=== PATIENT | female | born 1960 | race African-American/Black ===

== ENCOUNTER 2016-12-26 12:39 | Emergency (ER) | payer OTHER ==
--- NOTE | 2016-12-26 14:07 | RAD ---
RIGHT ANKLE THREE VIEWS: HISTORY: Injury, right ankle pain. FINDINGS/IMPRESSION: The ankle mortise is maintained. No fracture, dislocation, or bony destruction is seen. Soft tissu e swelling is present. POS: [facility]
[2016-12-26] MEDS ORDERED: HYDROcodone/Acetaminophen 10/325 mg Tablet ONE (14:11)
[2016-12-26] MEDS ORDERED: Naproxen 500 MG TAB ONE (14:11)
== END 2016-12-26 14:55 | disposition home or self-care (01) ==
LOC: MADERS 12:39
DX: S93.401A Sprain of unspecified ligament of right ankle, initial encounter (principal); E11.9 Type 2 diabetes mellitus without complications; E78.5 Hyperlipidemia, unspecified; E78.00 Pure hypercholesterolemia, unspecified; I10 Essential (primary) hypertension; Z87.891 Personal history of nicotine dependence; X58.XXXA Exposure to other specified factors, initial encounter

== ENCOUNTER 2017-02-22 05:18 | Emergency (ER) | payer OTHER ==
[2017-02-22] MEDS ORDERED: Benzonatate 100 MG CAP ONE (05:55)
== END 2017-02-22 06:37 | disposition home or self-care (01) ==
LOC: MADERS 05:18
DX: J06.9 Acute upper respiratory infection, unspecified (principal); E11.9 Type 2 diabetes mellitus without complications; E78.5 Hyperlipidemia, unspecified; I10 Essential (primary) hypertension; Z87.891 Personal history of nicotine dependence; Z79.82 Long term (current) use of aspirin; Z79.84 Long term (current) use of oral hypoglycemic drugs; Z79.899 Other long term (current) drug therapy
CPT/HCPCS: 36416; 99283

== ENCOUNTER 2017-11-03 08:21 | Emergency (ER) | payer OTHER | END 2017-11-03 09:20 | disposition home or self-care (01) | LOC: MADERS 08:21 | DX: J01.90 Acute sinusitis, unspecified (principal); E11.9 Type 2 diabetes mellitus without complications; E78.5 Hyperlipidemia, unspecified; I10 Essential (primary) hypertension; Z87.891 Personal history of nicotine dependence; Z79.82 Long term (current) use of aspirin; Z79.899 Other long term (current) drug therapy; Z79.84 Long term (current) use of oral hypoglycemic drugs | CPT/HCPCS: 87804; 99283 ==

== ENCOUNTER 2017-12-05 05:48 | Emergency (ER) | payer OTHER ==
[2017-12-05 06:12] LABS: Bilirubin Negative (Negative); Blood, Urine Negative (Negative); Clarity Clear (Clear); Glucose, Urine (Dipstick) Negative (Negative); Leukocyte Trace (Negative); Nitrite Negative (Negative); Protein, Urine (Dipstick) 30 mg/dL (Neg-Trace); Specific Gravity, Urine 1.029 (1.002-1.036); Urobilinogen 0.2 mg/dL (0.2-1.0); pH, Urine 5.5 (5.0-9.0)
[2017-12-05 06:21] LABS: RBC/HPF 0-3 HPF (0-3)
[2017-12-05 06:22] LABS: Bacteria/HPF 1+ HPF (None Seen)
[2017-12-05 06:36] LABS: #Basophils 0.1 thou/uL (0.0-0.2); #Eosinphils 0.1 thou/uL (0.0-0.7); #Lymphocytes 3.6 thou/uL (1.20-3.40); #Monocytes 0.4 thou/uL (0.11-0.59); #Neutrophils 3.4 thou/uL (1.40-6.50); %Basophils 1.8 % (0.0-1.0); %Eosinophils 1.2 % (0.0-10.0); %Lymphocytes 47.1 % (21.0-51.0); %Monocytes 5.2 % (0.0-10.0); %Neutrophils 44.7 % (42.0-75.0); Hemoglobin 13.4 g/dL (12.0-16.0); Mean Corpuscular Hemoglobin 29.1 pg (27.0-31.0); Mean Platelet Volume 6.9 fL (7.4-10.4); Platelet Count 375 thou/uL (130-400); RBC Distribution Width 13.1 % (11.5-14.5); Red Blood Cell (RBC) Count 4.59 mill/uL (4.20-5.40); White Blood Cell (WBC) Count 7.6 thou/uL (4.8-10.8)
[2017-12-05 06:45] LABS: ALT (SGPT) 19 U/L (8-55); AST (SGOT) 18 U/L (5-34); Albumin 4.1 g/dL (3.5-5.0); Alkaline Phosphatase 78 U/L (40-150); Anion Gap 14 mmol/L (10-20); BUN (Urea Nitrogen) 18 mg/dL (9.8-20.1); Bilirubin, Total 0.2 mg/dL (0.2-1.2); Calc. Creatinine Clearance 0 mL/min (70-130); Calcium 9.8 mg/dL (7.8-10.44); Carbon Dioxide 32 mmol/L (22-29); Chloride 102 mmol/L (98-107); Estimated GFR-MDRD Greater than 90; Globulin 3.2 g/dL (2.4-3.5); Glucose 108 mg/dL (70-105); Potassium 3.7 mmol/L (3.5-5.1); Protein, Total 7.3 g/dL (6.0-8.3); Sodium 144 mmol/L (136-145)
[2017-12-05] MEDS ORDERED: Ondansetron ODT 4 MG TAB ONE (06:46)
[2017-12-05] MEDS ORDERED: Mag-Al Plus 1200 MG/1200 MG/120 MG/30 ML UDCUP ONE (06:47)
[2017-12-05] MEDS ORDERED: Lidocaine Viscous Sol 2% 15 ml UD Cup ONE (06:47)
[2017-12-05] MEDS ORDERED: Donnatal Elixir 16.2 MG/5 ML UDCUP ONE ×2 (06:50→14:11)
--- NOTE | 2017-12-05 08:03 | RAD ---
CHEST 1 VIEW AND ABDOMEN 2 VIEWS: HISTORY: Abdominal pain. FINDINGS: The heart size is borderline. No focal areas of consolidation, pneumothorax, or pleural effusions ar e seen. There are postop changes of previous cholecystectomy. No free air or differential fluid lev els are seen. The bowel gas pattern is unremarkable. No suspicious calcification is seen. There ar e multiple pelvic phleboliths. POS: [facility]
== END 2017-12-05 07:50 | disposition home or self-care (01) ==
LOC: MADERS 05:48
DX: K29.00 Acute gastritis without bleeding (principal); E11.9 Type 2 diabetes mellitus without complications; E78.5 Hyperlipidemia, unspecified; I10 Essential (primary) hypertension; F17.210 Nicotine dependence, cigarettes, uncomplicated; Z85.828 Personal history of other malignant neoplasm of skin; Z79.82 Long term (current) use of aspirin; Z79.84 Long term (current) use of oral hypoglycemic drugs; Z79.899 Other long term (current) drug therapy
CPT/HCPCS: 74022; 80053; 81001; 82150; 83690; 85025; 86677; Q0162

== ENCOUNTER 2018-01-30 12:44 | Emergency (ER) | payer OTHER ==
[2018-01-30] MEDS ORDERED: Dexamethasone 10 MG/ML VIAL ONE (13:22)
[2018-01-30] MEDS ORDERED: Benzonatate 100 MG CAP ONE ×2 (13:22→13:23)
== END 2018-01-30 13:35 | disposition home or self-care (01) ==
LOC: MADERS 12:44
DX: J18.9 Pneumonia, unspecified organism (principal); G89.29 Other chronic pain; E11.9 Type 2 diabetes mellitus without complications; E78.5 Hyperlipidemia, unspecified; I10 Essential (primary) hypertension; F17.210 Nicotine dependence, cigarettes, uncomplicated; Z79.82 Long term (current) use of aspirin; Z79.899 Other long term (current) drug therapy
CPT/HCPCS: 99283; J1100

== ENCOUNTER 2018-02-11 11:05 | Emergency (ER) | payer OTHER ==
[2018-02-11] MEDS ORDERED: Ketorolac Tromethamine 30 MG/ML VIAL ONE (11:53)
[2018-02-11] MEDS ORDERED: Metoclopramide HCl 10 MG/2 ML VIAL ONE (11:53)
[2018-02-11] MEDS ORDERED: Ondansetron HCl/PF 4 MG/2 ML Vial ONE (11:53)
[2018-02-11 12:11] LABS: ALT (SGPT) 21 U/L (8-55); AST (SGOT) 19 U/L (5-34); Albumin 4.6 g/dL (3.5-5.0); Alkaline Phosphatase 96 U/L (40-150); Anion Gap 16 mmol/L (10-20); BUN (Urea Nitrogen) 10 mg/dL (9.8-20.1); Bilirubin, Total 0.4 mg/dL (0.2-1.2); CK (CPK) 157 U/L (29-168); Calc. Creatinine Clearance 0 mL/min (70-130); Carbon Dioxide 27 mmol/L (22-29); Chloride 102 mmol/L (98-107); Estimated GFR-MDRD 89; Glucose 156 mg/dL (70-105); Protein, Total 7.6 g/dL (6.0-8.3); Sodium 142 mmol/L (136-145)
[2018-02-11 12:13] LABS: #Basophils 0.2 thou/uL (0.0-0.2); #Eosinphils 0.1 thou/uL (0.0-0.7); #Lymphocytes 4.9 thou/uL (1.20-3.40); #Monocytes 0.5 thou/uL (0.11-0.59); #Neutrophils 4.4 thou/uL (1.40-6.50); %Basophils 1.9 % (0.0-1.0); %Eosinophils 0.7 % (0.0-10.0); %Monocytes 4.5 % (0.0-10.0); %Neutrophils 43.9 % (42.0-75.0); CKMB 1.8 ng/mL (0-6.6); Hemoglobin 15.1 g/dL (12.0-16.0); Mean Corpuscular HGB CONC 34.1 g/dL (32.0-36.0); Mean Corpuscular Hemoglobin 29.5 pg (27.0-31.0); Mean Corpuscular Volume 86.5 fl (81.0-99.0); Mean Platelet Volume 6.2 fL (7.4-10.4); Platelet Count 403 thou/uL (130-400); Red Blood Cell (RBC) Count 5.14 mill/uL (4.20-5.40); Troponin I Less than 0.010 ng/mL (< 0.028)
--- NOTE | 2018-02-11 12:36 | CT ---
CT HEAD NONCONTRAST: Date: 02/11/18 HISTORY: Dizziness. FINDINGS: No comparison. There is no evidence of acute intracranial hemorrhage or infarct. The ventricle appear normal in size , shape, and position. There is no mass effect or shift of midline structures. Visualized paranasal s inuses remain well aerated. IMPRESSION: No acute intracranial abnormalities are demonstrated on noncontrast CT head. POS: [facility]
--- NOTE | 2018-02-11 12:41 | RAD ---
FRONTAL VIEW CHEST: Date: 02/11/18 COMPARISON: 12/21/14. INDICATION: Dizziness, nausea, and vomiting. FINDINGS: There is no consolidation, effusion, or discrete pneumothorax. Cardiac silhouette is stable, accentua andreas by portable technique. There is mild prominence of pulmonary vasculature. IMPRESSION: Mild prominence of pulmonary vasculature may be on the basis of fluid status. Correlate clinically. A s necessary, imaging follow-up may be obtained. POS: [facility]
== END 2018-02-11 13:25 | disposition home or self-care (01) ==
LOC: MADERS 11:05
DX: H83.09 Labyrinthitis, unspecified ear (principal); E11.9 Type 2 diabetes mellitus without complications; E78.5 Hyperlipidemia, unspecified; I10 Essential (primary) hypertension; F17.210 Nicotine dependence, cigarettes, uncomplicated; Z79.82 Long term (current) use of aspirin; Z79.84 Long term (current) use of oral hypoglycemic drugs; Z79.899 Other long term (current) drug therapy
CPT/HCPCS: 36416; 70450; 71045; 80053; 82550; 82553; 83880; 84484; 85025; 93005; 96365; 96375; J1885; J2405; J2765

== ENCOUNTER 2019-07-15 15:49 | Emergency (ER) | payer OTHER ==
--- NOTE | 2019-07-15 16:50 | RAD ---
EXAM: Chest PA and lateral: HISTORY: Cough COMPARISON: 08/23/2016 FINDINGS: Heart: Normal cardiac silhouette Aorta: Unremarkable Pulmonary vessels: Normal Costophrenic angles: Costophrenic angles are clear. Lungs: No masses or consolidation. Chronic interstitial changes. Pneumothorax: No pneumothorax Osseous structures: No osseous abnormalities IMPRESSION: No acute cardiopulmonary process.
== END 2019-07-15 17:00 | disposition home or self-care (01) ==
LOC: MADERS 15:49
DX: J20.8 Acute bronchitis due to other specified organisms (principal); J02.9 Acute pharyngitis, unspecified; E11.9 Type 2 diabetes mellitus without complications; E78.5 Hyperlipidemia, unspecified; E78.00 Pure hypercholesterolemia, unspecified; I10 Essential (primary) hypertension; F17.210 Nicotine dependence, cigarettes, uncomplicated; Z79.82 Long term (current) use of aspirin; Z79.84 Long term (current) use of oral hypoglycemic drugs; Z79.899 Other long term (current) drug therapy; Z85.828 Personal history of other malignant neoplasm of skin
CPT/HCPCS: 71046; 87804

== ENCOUNTER 2020-08-21 05:47 | Emergency (ER) | payer BC, OTHER ==
[2020-08-21 06:18] LABS: Leukocyte Moderate (Negative); Nitrite Negative (Negative)
[2020-08-21 06:19] LABS: Glucose, Urine (Dipstick) Negative (Negative); Ketone, Urine Unable to Interpret mg/dL (Negative); Urobilinogen 0.2 mg/dL (Less than 2)
[2020-08-21 06:20] LABS: Bilirubin Moderate (Negative); Blood, Urine Large (Negative); Clarity Turbid (Clear); RBC/HPF Greater than 50 HPF (0-3)
[2020-08-21 06:21] LABS: Protein, Urine (Dipstick) > or equal to 300 mg/dL (Neg-Trace)
[2020-08-21 06:22] LABS: Bacteria/HPF 1+ HPF (None Seen); Squamous Epithelial 0-3 HPF (0-3); WBC/HPF 21-50 HPF (0-3)
[2020-08-21] MEDS ORDERED: Sterile Water 10 ML ONE (06:30)
[2020-08-21] MEDS ORDERED: cefTRIAXone\\ROCEPHIN 1 GM VIAL ONE (06:30)
[2020-08-21] MEDS ORDERED: Nitrofurantoin Monohyd/M-Cryst 100 MG CAP ONE (06:30)
== END 2020-08-21 06:58 | disposition home or self-care (01) ==
LOC: MADERS 05:47
DX: N30.01 Acute cystitis with hematuria (principal); E11.9 Type 2 diabetes mellitus without complications; E78.5 Hyperlipidemia, unspecified; E78.00 Pure hypercholesterolemia, unspecified; I10 Essential (primary) hypertension; F41.9 Anxiety disorder, unspecified; F17.210 Nicotine dependence, cigarettes, uncomplicated; Z79.899 Other long term (current) drug therapy
CPT/HCPCS: 81001; 87086; 96372; 99283; J0696

== ENCOUNTER 2021-09-22 13:58 | Emergency (ER) | payer BC, OTHER ==
[2021-09-22] MEDS ORDERED: Orphenadrine Citrate 60 MG/2 ML VIAL ONE (14:32)
== END 2021-09-22 15:01 | disposition home or self-care (01) ==
LOC: MADERS 13:58
DX: M54.50 Low back pain, unspecified (principal); E11.9 Type 2 diabetes mellitus without complications; E78.5 Hyperlipidemia, unspecified; I10 Essential (primary) hypertension; F17.210 Nicotine dependence, cigarettes, uncomplicated
CPT/HCPCS: 96372; 99283; J2360

== ENCOUNTER 2023-09-05 06:56 | Emergency (ER) | payer BC, OTHER ==
[2023-09-05 08:29] LABS: Hematocrit 46.6 % (36.0-47.0); Hemoglobin 14.1 g/dL (12.0-16.0); Mean Corpuscular HGB CONC 30.3 g/dL (32.0-36.0); Mean Corpuscular Hemoglobin 27.2 pg (27.0-31.0); Mean Corpuscular Volume 89.8 fl (78.0-98.0); Mean Platelet Volume 6.7 fL (7.4-10.4); Platelet Count 447 10x3/uL (130-400); RBC Distribution Width 13.7 % (11.5-14.5); Red Blood Cell (RBC) Count 5.19 mill/uL (4.20-5.40); White Blood Cell (WBC) Count 8.9 10x3/uL (4.8-10.8)
[2023-09-05] MEDS ORDERED: Azithromycin 250 MG TAB ONE (08:34)
[2023-09-05 08:35] LABS: ALT (SGPT) 27 U/L (8-55); AST (SGOT) 36 U/L (5-34); Albumin 4.1 g/dL (3.4-4.8); Alkaline Phosphatase 63 U/L (40-110); Anion Gap 17 mmol/L (10-20); BUN (Urea Nitrogen) 19 mg/dL (9.8-20.1); Bilirubin, Total 0.3 mg/dL (0.2-1.2); Calc. Creatinine Clearance 0 mL/min (70-130); Carbon Dioxide 28 mmol/L (23-31); Chloride 100 mmol/L (98-107); Estimated GFR 81; Globulin 2.8 g/dL (2.4-3.5); Glucose 76 mg/dL (80-115); Potassium 3.9 mmol/L (3.5-5.1); Protein, Total 6.9 g/dL (5.8-8.1); Sodium 141 mmol/L (136-145)
[2023-09-05] MEDS ORDERED: cefTRIAXone (ROCEPHIN) 1 GM VIAL ONE (08:35)
[2023-09-05] MEDS ORDERED: Ipratropium/Albuterol 3 ML NEB ONE ×2 (08:35→08:56)
[2023-09-05] MEDS ORDERED: methylPREDNISolone Sod Succ/PF 125 MG/2 ML VIAL ONE (08:35)
[2023-09-05 08:37] LABS: Troponin I Less than 0.010 ng/mL (< 0.028)
[2023-09-05 08:45] LABS: MDiff Complete? YES; Manual Diff?? YES
[2023-09-05 08:46] LABS: Anisocytosis SLIGHT = 6-15 cells (100X) (0-5/hpf); Band 2 % (5-11); Lymphocytes 53 % (21-51); Monocytes 6 % (0-10); Neutrophil 39 % (42-75); Platelet Adequacy Comment Appears Increased
== END 2023-09-05 10:30 | disposition home or self-care (01) ==
LOC: MADERS 06:56
DX: J20.9 Acute bronchitis, unspecified (principal); J02.9 Acute pharyngitis, unspecified; E11.9 Type 2 diabetes mellitus without complications; I10 Essential (primary) hypertension; E78.00 Pure hypercholesterolemia, unspecified; F17.210 Nicotine dependence, cigarettes, uncomplicated; Z79.84 Long term (current) use of oral hypoglycemic drugs
CPT/HCPCS: 71045; 80053; 84484; 85025; 93005; 96372; J0696; J2930; J7620